=== PATIENT | female | born 1955 | race Caucasian/White ===

== ENCOUNTER 2024-08-15 12:42 | Outpatient (CLI) | payer MEDICARE, SELFPAY ==
--- NOTE | ~2024-08-15 | MR_ITS ---
EXAMINATION: MR shoulder LT wo con DATE: 08/15/2024 13:29 INDICATION: Left shoulder bicipital tendinitis. TECHNIQUE: Magnetic resonance imaging (MRI) of the left shoulder was performed without intravenous co ntrast. Sequences included axial PD-weighted FS FSE, coronal oblique PD-weighted FS FSE, coronal obli que T2-weighted FS FSE, sagittal PD-weighted FS FSE, and sagittal T1-weighted SE. COMPARISON: None. FINDINGS: Coracoacromial arch: The acromion undersurface is curved in morphology (type II) with moderate-sized anterior subacromial spur at the acromial insertion of the normal coracoacromial ligament. Severe acromioclavicular osteoa rthritis with moderate-sized inferiorly directed osteophytes. Rotator cuff: Moderate supraspinatus and infraspinatus tendinopathy. There is a small full-thickness tear involving the anterior supraspinatus tendon which begins approximately 1-1.5 cm from the superior facet footpl ate. The tear defect measures 1.7 cm medial to lateral. The tear measures 1 cm AP from the posterior margin of the biceps luz elena sling at the rotator cuff interval to the anterior margin of the remainin g intact supraspinatus tendon. Patellar ridge extending additional 1 cm more posteriorly as a partial -thickness articular sided tear of the more posterior supraspinatus tendon involving from one third t o one half of the tendon thickness. No tear of the infraspinatus tendon. The teres minor tendon is no rmal. Mild subscapular tendinopathy without discrete tear. Asymmetric mild to moderate fatty atrophy of the supraspinatus muscle belly. Biceps tendon, glenoid labrum and glenohumeral cartilage: Mild to moderate tendinopathy of the intra and extra articular portions of the long head biceps tendo n without discrete tear. There is a tear with increased signal at the base of and within the substanc e of the posterior superior glenoid labrum beginning at the 12:00 position and extending posteriorly to the 10:00 position. There is further more caudal extension of the tear or peripherally along the f ree edge of the 10:00-o'clock position of the posterior labrum. There is thickening of the anteroinfe rior labrum with more diffuse amorphous increased labral signal consistent with less well-defined deg enerative tearing. There is partial thickness chondral ulceration along the apex of the humeral head with smooth chondral surface and with some chondral surface regularity along the inferomedial aspect of the humeral head are also moderate size marginal osteophytes. Glenoid cartilage appears relatively preserved. Fluid: There is a moderate-sized glenohumeral joint effusion which extends through the full-thickness rotato r cuff tear to communicate with small to moderate amount of fluid in the subacromial/subdeltoid bursa and can indicate with a small amount of fluid extending into the acromioclavicular joint. There is a lso extension of fluid into the deep subscapular recess. Moderate synovitis at the axillary recess of the joint space. No loose osteochondral bodies. Bones: Normal marrow signal. No fracture or pathologic marrow replacing process. IMPRESSION: 1. Moderate supraspinatus and infraspinatus tendinopathy with small full-thickness tear involving the critical zone of the anterior supraspinatus tendon continuing into the more posterior tendon as a pa rtial-thickness articular sided tear. 2. Mild glenohumeral osteoarthritis with degenerative tearing of the anteroinferior glenoid labrum an d more well-defined tear of the posterior superior to posterior labrum. 3. Severe acromioclavicular osteoarthritis. 4. Mild to moderate tendinopathy without tear of the long head biceps tendon. 5. Moderate-sized left knee joint effusion. Reviewed, dictated and finalized at location B. ICE LIAISON REPRESENTATIVE IMPRESSION: 1. Moderate supraspinatus and infraspinatus tendinopathy with small full-thickn ess tear involving the critical zone of the anterior supraspinatus tendon herrera nuing into the more posterior tendon as a partial-thickness articular sided tea r. 2. Mild glenohumeral osteoarthritis with degenerative tearing of the anteroinfe rior glenoid labrum and more well-defined tear of the posterior superior to pos terior labrum. 3. Severe acromioclavicular osteoarthritis. 4. Mild to moderate tendinopathy without tear of the long head biceps tendon. 5. Moderate-sized left knee joint effusion.
--- OUTSIDE RECORDS SUMMARY | 2024-08-15 13:57 | XMS_ITS | Referral Summary ---
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 with mixed inflammation compatible with reflux related changes. - Negative for intestinal metaplasia and dysplasia. Oniel Vargas M.D. Report Electronically Reviewed and Signed Out By Oniel Vargas M.D. 06/22/2024 09:23:51 Specimen(s) Received: A: Gastric Biopsy B: Gastric erosion biopsy C: GE Junction Biopsy Microscopic Description: A. Sections show antral and oxyntic-type gastric mucosa showing mild chronic inactive gastritis with overlying regenerative change. No significant acute inflammatory infiltrate is seen. There is no evidence of intestinal metaplasia or dysplasia. In order to classify the gastritis further, a Helicobacter immunohistochemical stain was performed with adequate controls and is negative. B. Sections show oxyntic type gastric mucosa showing a mild chronic active gastritis with erosion. There is no evidence of intestinal metaplasia or dysplasia. Additionally, a small panel of immunohistochemical stains was performed with adequate controls. A Helicobacter immunohistochemical stain is negative. A pancytokeratin AE1/AE3 shows no evidence of an infiltrating carcinoma. C. Sections show squamocolumnar epithelium with mixed inflammation compatible with reflux related changes. There is no definitive evidence of intestinal metaplasia or dysplasia. Additionally, a small panel of special and immunohistochemical stains was performed with adequate controls. A pancytokeratin AE1/AE3 shows no evidence of an infiltrating carcinoma. An Alcian blue/PAS shows no evidence of intestinal metaplasia. Clinical History: Hiatal hernia. Esophagitis. GERD. EGD. Gross Description: The specimen is submitted in three formalin containers labeled MICHAEL QUINN . A. The first container is labeled gastric biopsy . It is 4 fragments of price tissue between 1 and 2 mm. All in A. B. The second container is labeled gastric erosion . It is one price tissue fragment measuring 2 mm. All in B. C. The third container is labeled GE junction . It is 2 fragments of price tissue measuring 2 mm. All in C. T.A. Jameel Ramirez., P.A./Janeth Angel M.D. REPORT IMAGES AND SCANNED DOCUMENTS, IF INCLUDED, ONLY VIEWABLE IN PDF VERSION OF REPORT The performance characteristics of some immunohistochemical stains, fluorescence in-situ hybridization tests and immunophenotyping by flow cytometry cited in this report (if any) were determined by the Surgical Pathology Department at [facility] as part of an ongoing quality control chemist program and in compliance with federally mandated regulations drawn from the Clinical Laboratory Improvement Act of 1988 (CLIA '88). Some of these tests rely on the use of analyte specific reagents and are subject to specific labeling requirements by the US Food and Drug Administration. Such diagnostic tests may only be performed in a facility that is certified by the Department of Health and Human Services as a high complexity laboratory under CLIA '88. The FDA has determined that such clearance or approval is not necessary. This test is used for clinical purposes. It should not be regarded as investigational or for research. Nevertheless, federal rules concerning the medical use of analyte specific reagents require that the following disclaimer be attached to the report: This test was developed and its performance characteristics determined by the Surgical Pathology Department [facility]. It has not been cleared or approved by the U. S. Food and Drug Administration. Note for decalcified specimens: This assay has not been validated on decalcified tissues. Results should be interpreted with caution given the possibility of false negativity on decalcified specimens us Brandy Obrien MD LAB PATHOLOGY ORDERABLES Final R esult PATHOLOGY [facility] [address] [place] [id number] * EGD (06/20/2024 7:45 AM SHUCKER) Anatomical Region Laterality Modality Other Narrative Procedure Note Brandy Obrien MD - 06/20/2024 7:45 AM CST [facility] Patient Name: Michael Quinn Procedure Date: 06/20/2024 7:45 AM Date of : 1955 Admit Type: Outpatient Age: 69 Gender: Female Attending MD: Brandy Obrien M.D. Room: [facility] ENDOSCOPY ROOM 2 Note Status: Finalized Patient Profile: This is a 69 year old female hx of HLD, obesity,GERD here for evaluation of hiatal hernia, GERD and esophagitis. EGD from 2019 showed 4 cm hiatalhernia and Grade B esophagitis. Currently taking Nexium 20mg daily with adequate control, however does have bad breakthrough reflux if skips a dose Procedure: Upper GI endoscopy Indications: Follow-up of esophagitis, GERD, hiatal hernia Referring MD: Vasu Pickens M.D. Providers: Brandy Obrien M.D. Impression: - Large 8 cm hiatal hernia. - LA Grade A reflux esophagitis with no bleeding. Biopsied. - Erosive gastropathy with no bleeding and nostigmata of recent bleeding. Biopsied. - Erythematous mucosa in the gastric fundus,gastric body and antrum. Biopsied. - Normal examined duodenum. Recommendation: - Patient has a contact number available for emergencies. The signs and symptoms of potential delayed complications were discussed with thepatient. Return to normal activities tomorrow. Written discharge instructions were provided to thepatient. - Discharge patient to home (with escort). - Resume previous diet. - No ibuprofen, naproxen, or other non-steroidal anti-inflammatory drugs. - Continue present medications. - Await pathology results. - Return to GI clinic as previously scheduled. Medicines: Monitored Anesthesia Care Complications: No immediate complications. Estimated Blood Loss: Estimated blood loss was minimal. Procedure: Pre-Anesthesia Assessment: - Prior to the procedure, a History and Physicalwas performed, and patient medications and allergieswere reviewed. The patient is competent. The risks and benefits of the procedure and the sedation optionsand risks were discussed with the patient. Allquestions were answered and informed consent was obtained. Patient identification and proposed procedure were verified by the physician, the j2ee programmer and the testing and regulating technician in the endoscopy suite. Mental Status Examination: normal. Prophylactic Antibiotics: The patient does not require prophylactic antibiotics. Prior Anticoagulants: The patient has taken no anticoagulant or antiplatelet agents. Afterreviewing the risks and benefits, the patient was deemed in satisfactory condition to undergo the procedure.The anesthesia plan was to use monitored anesthesiacare (MAC). Immediately prior to administration of medications, the patient was re-assessed foradequacy to receive sedatives. The heart rate, respiratory rate, oxygen saturations, blood pressure, adequacyof pulmonary ventilation, and response to care were monitored throughout the procedure. The physical status of the patient was re-assessed after the procedure. The benefits, risks, and alternatives to theprocedure and sedation were discussed and informed consentwas obtained. The scope was passed under direct vision. The Endoscope [id number] was introduced through the mouth, and advanced to the second partof duodenum. The upper GI endoscopy was accomplished without difficulty. The patient tolerated the procedure well. Findings: An 8 cm hiatal hernia was present. LA Grade A (one or more mucosal breaks less than 5 mm, not extending between tops of 2 mucosal folds) esophagitis with a localized area of nodularity was found at the gastroesophageal junction. Biopsies were taken with a cold forceps for histology. A single localized linear erosion with no bleeding and no stigmata of recent bleeding was found in the hernia sac. Biopsies were taken witha cold forceps for histology. Mildly erythematous mucosa without bleeding was found in the gastric fundus, in the gastric body and in the gastric antrum. Biopsies were taken with a cold forceps for Helicobacter pylori testing. The examined duodenum was normal. Brandy Obrien M.D. 06/20/2024 9:42:30 AM Number of Addenda: 0 Note Initiated On: 06/20/2024 7:45 AM Procedure Code(s): --- Professional --- 98896, Esophagogastroduodenoscopy, flexible, transoral; with biopsy, single or multiple --- Technical --- 37161, Esophagogastroduodenoscopy, flexible, transoral; with biopsy, single or multiple Diagnosis Code(s): --- Professional --- K44.9, Diaphragmatic hernia without obstruction or gangrene K21.00, Gastro-esophageal reflux disease with esophagitis, without bleeding K31.89, Other diseases of stomach and duodenum --- Technical --- K44.9, Diaphragmatic hernia without obstruction or gangrene K21.00, Gastro-esophageal reflux disease with esophagitis, without bleeding K31.89, Other diseases of stomach and duodenum CPT copyright 2020 [employer]. All rights reserved. The codes documented in this report are preliminary and upon airport manager reviewmay be revised to meet current compliance requirements. Recognized by the [employer] for promoting quality in endoscopy us Brandy Obrien MD ENDOSCOPY PROCEDURES Final Resul t * Colonoscopy (04/05/2024 7:03 AM CDT) Anatomical Region Laterality Modality Other Narrative Procedure Note Kanu Schwarz, - 04/05/2024 7:03 AM CDT [facility] Patient Name: Michael Quinn Procedure Date: 04/05/2024 7:03 AM Date of : 1955 Admit Type: Outpatient Age: 69 Gender: Female Attending MD: Kanu Schwarz D.O. Room: [facility] END[facility]COPY ROOM 2 Note Status: Finalized Patient Profile: Refer to note in patient chart for documentation of history and physical. Procedure: Colonoscopy Indications: High risk colon cancer surveillance: Personalhistory of colonic polyps, Family history of colon cancerin multiple first-degree relatives, Last colonoscopy: June 2017 Referring MD: Vasu Pickens M.D. Providers: Kanu Schwarz D.O. Impression: - One 5 mm polyp in the distal sigmoid colon,removed with a hot snare. Resected and retrieved. - One 2 mm polyp in the sigmoid colon, removed witha jumbo cold forceps. Resected and retrieved. - Diverticulosis in the sigmoid colon, in the descending colon, in the transverse colon and inthe ascending colon. - The examined portion of the ileum was normal. Recommendation: - Discharge patient to home. - Resume previous diet. - Continue present medications. - Await pathology results. - Repeat colonoscopy in 3 years for surveillance. - Return to primary care physician PRN. - Patient has a contact number available for emergencies. The signs and symptoms of potential delayed complications were discussed with thepatient. Return to normal activities tomorrow. Written discharge instructions were provided to thepatient. -Call 2 weeks for biopsy report. -Metamucil or Benefiber daily. Medicines: Monitored Anesthesia Care Complications: No immediate complications. Estimated Blood Loss: Estimated blood loss was minimal. Procedure: Pre-Anesthesia Assessment: - As per anesthesia. The benefits, risks and alternatives of theprocedure and sedation were discussed and informed consentwas obtained. All questions were answered. Please referto the signed informed consent document in the medical record. The bowel preparation used was Miralax via split dose instruction. The bowel preparation usedwas bisacodyl tablets via split dose instruction. The scope was passed under direct vision. TheColonoscope [id number] was introduced through the anus and advanced to the 5 cm into the ileum. Theterminal ileum, the appendiceal orifice and the rectum were photographed. The colonoscopy was performed without difficulty. The patient tolerated the procedurewell. The quality of the bowel preparation was good. Findings: The perianal and digital rectal examinations were normal. A 5 mm polyp was found in the distal sigmoid colon. The polyp was pedunculated. The polyp was removed with a hot snare. Resection and retrieval were complete. A 2 mm polyp was found in the sigmoid colon. The polyp was flat. The polyp was removed with a jumbo cold forceps. Resection and retrieval were complete. A few diverticula were found in the sigmoid colon, descending colon, transverse colon and ascending colon. The terminal ileum appeared normal. Electronically signed by Kanu Schwarz M.D. Kanu Schwarz D.O. 04/05/2024 9:13:20 AM Number of Addenda: 0 Note Initiated On: 04/05/2024 7:03 AM Procedure Code(s): --- Professional --- 70403, Colonoscopy, flexible; with removal of tumor(s), polyp(s), or other lesion(s) by snare technique 30890, 59, Colonoscopy, flexible; with biopsy, single or multiple --- Technical --- 11801, Colonoscopy, flexible; with removal of tumor(s), polyp(s), or other lesion(s) by snare technique 84401, 59, Colonoscopy, flexible; with biopsy, single or multiple Diagnosis Code(s): --- Professional --- Z86.010, Personal history of colonic polyps D12.5, Benign neoplasm of sigmoid colon Z80.0, Family history of malignant neoplasm of digestive organs K57.30, Diverticulosis of large intestine without perforation orabscess without bleeding --- Technical --- Z86.010, Personal history of colonic polyps D12.5, Benign neoplasm of sigmoid colon Z80.0, Family history of malignant neoplasm of digestive organs K57.30, Diverticulosis of large intestine without perforation orabscess without bleeding CPT copyright 2020 [employer]. All rights reserved. The codes documented in this report are preliminary and upon airport manager reviewmay be revised to meet current compliance requirements. Recognized by the [employer] for promoting quality in endoscopy us Kanu Schwarz DO ENDOSCOPY PROCEDURES Final Res ult * Screening Mammogram Bilateral W Jason (08/24/2023 1:07 PM CDT) Anatomical Region Laterality Modality Breast Bilateral Mammography 08/24/2023 1:20 PM CDT Impressions 08/24/2023 1:20 PM CDT There is no mammographic evidence of malignancy. A 1 year screening mammogram is recommended. BI-RADS: 1 - Negative. The patient has been or will be contacted. The patient will be entered into a reminder system with a target due date of 1 year for her next mammogram. Electronically signed by: Radha Brenner M.D. Narrative 08/24/2023 1:20 PM CDT EXAMINATION: SCREENING MAMMOGRAM BILATERAL W JASON ORDERING HEALTHCARE PROVIDER: SELF SCREENING MAMMOGRAM HISTORY: Routine screening mammography. COMPARISON: 10/22/2020, 03/21/2017, 05/21/2015 TECHNIQUE: CC and MLO views of the bilateral breasts were obtained with digital technique using breast tomosynthesis with C view. Computer aided detection was utilized. FINDINGS: DENSITY: There are scattered fibroglandular elements in the bilateral breasts. BREASTS: There are no suspicious masses, suspicious calcifications, or other suspicious findings in either breast. There has been no suspicious interval change. us Self Screening Mammogram IMG MAMMO PROCEDURES Fi nal Result * HEPATITIS C AB W/REFL TO HCV RNA, QN, PCR (REFL) (03/09/2017 9:25 AM CDT) Hep C Ab NON-REACTI VE NON-REACTI VE [facility] SIGNAL TO CUT-OFF 0.02 <1.00 [facility] Blood specimen (specimen) 03/09/2017 9:25 AM CDT 03/10/2017 4:19 AM CDT Narrative Resulting Agency Comment Performing Organization Information: Site ID: [place] Name: [facility] Address: [id number] [place] [id number] Director: Oesi Fleming D.O., MPH Vasu Pickens MD LAB BLOOD ORDERABLES Fin al Result JATIN [facility] [place], [place] * HM DEXA SCAN (06/23/2015) HM DEXA Scan Normal Historical Provider HEALTH MAINTENANCE Final Result from Last 3 Months or Most Recently Relevant to Health Maintenance Insurance AETNA MEDICARE [facility] AETNA MEDICARE AETNA MEDICARE Advance Directives For more information, please contact: [phone] * Full Code (Latest Code Status on File) Date Activated Date Inactivated Comments 06/20/2024 7:30 AM 06/20/2024 3:01 PM * Full Code Date Activated Date Inactivated Comments 06/20/2024 7:30 AM 06/20/2024 7:30 AM * Full Code Date Activated Date Inactivated Comments 04/05/2024 7:28 AM 04/05/2024 2:00 PM * Full Code Date Activated Date Inactivated Comments 04/05/2024 7:28 AM 04/05/2024 7:28 AM * Full Code Date Activated Date Inactivated Comments 09/08/2022 7:12 PM 09/10/2022 7:58 PM Care Teams Stereoptic Projection Topographer Relationship Specialty Start Date End Date Vasu Pickens MD [address] [place] [address] PCP - General 09/10/16
--- OUTSIDE RECORDS SUMMARY | 2024-08-15 13:57 | XMS_ITS | Clinical Summary ---
Author Organization [facility] Address [address], [address] [address] Phone Care Team Providers Care Migratory Farm Hand Name Role Phone Unavailable Primary Care Provider Unavailabl e Allergies Active Allergy Reactions Criticality Noted Date Comments Amoxicillin Diarrhea Low 12/13/2018 Reaction: diarrhea, Atorvastatin Other (see Comments) 12/13/2018 Reaction: Myalgias, Celecoxib Other (see Comments) 12/13/2018 Codeine Other (see Comments) 12/13/2018 Medications diclofenac (VOLTAREN) 75 MG Tablet Delayed Response 9 Active TRUEPLUS INSULIN SYRINGE 31G X 10/26 0.5 ML Misc 9 Active Levocetirizine Dihydrochloride 5 MG Tablet ONEDAILY 7 Active levothyroxine (SYNTHROID) 100 MCG Tablet 200 mcg. 9 Active LORazepam (ATIVAN) 1 MG Tablet 1 mg. 9 Active montelukast (SINGULAIR) 10 MG Tablet 9 Active raNITIdine (ZANTAC) 300 MG Tablet 300 mg. 5 Active sertraline (ZOLOFT) 100 MG Tablet 9 Active Social History Tobacco Use Types Packs/Day Years Used Date Smoking Tobacco: Former Cigarettes 1 20 Smokeless Tobacco: Never Alcohol Use Standard Drinks/Week Comments Never 0 (1 standard drink = 0.6 oz pur e alcohol) AUDIT-C Answer Date Recorded Frequency of Alcohol Consumption Never 12/13/2018 Average Number of Drinks Not on file 019 Frequency of Binge Drinking Not on file 08/2018 Comments Unknown Sex and Gender Information Value Date Recorded Sex Assigned at Not on file Legal Sex Female 11:38 PM CDT Gender Identity Not on file Sexual Orientation Not on file Last Filed Vital Signs Vital Sign Reading Time Taken Comments Blood Pressure 128/86 12/13/2018 1:01 PM CDT Pulse 86 12/13/2018 1:01 PM CDT Temperature 36.6 C (97.9 F) 12/13/2018 1:01 PM CDT Respiratory Rate 18 12/13/2018 1:01 PM CDT Oxygen Saturation 98% 12/13/2018 1:01 PM CDT Inhaled Oxygen Concentration - - Weight 116.1 kg (256 lb) 12/13/2018 1:01 PM CDT Height 175.3 cm (5' 9 ) 12/13/2018 1:01 PM CDT Body Mass Index 37.8 12/13/2018 1:01 PM CDT Plan of Treatment Health Maintenance Due Date Last Done Comments DEXA Bone Density 1955 Hepatitis C Virus (HCV) Screening 1955 TdaP Immunization 1955 Colonoscopy 1999 Colorectal Cancer Screening 1999 Cologuard 01/12/2004 Immunochemical Fecal Occult Blood 01/12/2004 Mammogram 01/12/2004 Pneumococcal Immunization (50+ years) (1 of 1 - PCV) 01/12/2004 Zoster Immunization (1 of 2) 01/12/2004 Influenza Immunization (#1) 2024 03/29/2016, 1 07/12/2014 SARS-COV-2 Immunization ( season) 2024 11/02/2021, 03/09/2021, 08/14/2020, Additional history exists Respiratory Syncytial Virus (RSV) Immunization (Adult) (1 - 1-dose 75+ series) 2029 Hepatitis B Immunization Aged Out No longer eligible based on patient's age to complete this topic Meningococcal Immunization (ACWY) Aged Out No longer eligible based on patient's age to complete this topic Rotavirus Immunization Aged Out No lo nger eligible based on patient's age to complete this topic
--- OUTSIDE RECORDS SUMMARY | 2024-08-15 13:57 | XMS_ITS | Encounter Summary ---
Author Organization [facility] Address [address] [place] [address] Care Team Providers Care Receiving Room Clerk Name Role Phone Vasu Pickens MD Primary Care Provider + Encounter Details Date Type Department Care Team (Late st Contact Info) Description 08/07/2024 Results Follow-Up [facility] Gastroenterology at [address] [place] [address] Brandy Obrien MD [address] [place] [address] [address] [place] [address] Social History Tobacco Use Types Packs/Day Years Used Date Smoking Tobacco: Former Smokeless Tobacco: Never Alcohol Use Standard Drinks/Week Comments Yes 0 [...] 09/09/2022 How often do you attend chur ch or roman catholic services? More than 4 times per year 09/09/2022 Do you belong to any clubs o r organizations such as roman catholic groups, unions, fraternal or athletic groups, or [...] Master's degree (e.g., MA, MS, Santos, MEd, CITY DETECTIVE, TIMA) 09/09/2022 Comments No Sex and Gender Information Value Date Recorded Sex Assigned at Not on file Legal Sex Female 5:12 PM COPY CENTER ASSOCIATE Gender Identity Not on file Sexual Orientation Not on file documented as of this encounter Plan of Treatment Not on file documented as of this encounter Visit Diagnoses Not on filedocumented in this encounter Care Teams Receiving Room Clerk Relationship Specialty Start Date End Date Vasu Pickens MD [address] [place], [place] [address] PCP - General 09/10/16 documented as of this encounter
--- OUTSIDE RECORDS SUMMARY | 2024-08-15 13:57 | XMS_ITS | CONTINUITY OF CARE DOCUMENT ---
Author Name francois parrish Address Unknown Organization [facility] Office Address [address] [place] [address] Phone [phone] Care Team Providers Care Bus And Rail Operator Name Role Phone Jax WINTERS, Bernardo Unavailable CARMEN BARRAGAN MD Unavailable PROBLEMS Condition Status Date Provider Notes Cardiovascular screening active Yolis Leung INSURANCE PROVIDERS Payer name Policy type / Coverage type [place] red constitution party ID AETNA [facility] H[facility] Commercial [facility] [id number] TREATMENT PLAN Date Name CT, Coronary Calcium Score HISTORY OF PROCEDURES Procedure Date Procedure Name Provider Procedure Notes S tatus CT- Coronary CA score Bernardo Camara MD completed
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
== END 2024-08-15 12:43 | disposition home or self-care (01) ==
PROVIDERS: PCP Internal Medicine; Visit Provider Orthopaedic Surgery
DX: M75.22 Bicipital tendinitis, left shoulder (principal); M67.814 Other specified disorders of tendon, left shoulder; M19.012 Primary osteoarthritis, left shoulder; S46.012A Strain of muscle(s) and tendon(s) of the rotator cuff of left shoulder, initial encounter; X58.XXXA Exposure to other specified factors, initial encounter; M25.462 Effusion, left knee
CPT/HCPCS: 73221

== ENCOUNTER 2025-03-18 13:55 | Outpatient (CLI) | payer MEDICARE, SELFPAY ==
[2025-03-18 14:46] LABS: Hematocrit 37.1 % (37.0-47.0); Hemoglobin 12.0 g/dL (12.0-15.0)
--- OUTSIDE RECORDS SUMMARY | 2025-03-18 14:47 | XMS_ITS | Clinical Summary ---
Author Organization [facility] Building A Address [address] [place] [address] Care Team Providers Care Promotion Specialist Name Role Phone Vasu Pickens MD Primary [...] TAKE TWO TABLETS ONCE DAILY. 180 3 8 Active albuterol HFA (PROVENTIL HFA,VENTOLIN HFA) 90 mcg/actuation inhaler INHALE ONE OR TWO PUFFS INTO LUNGS EVERY FOUR TO SIX HOURS NEEDED 9 3 8 Active montelukast (SINGULAIR) 10 mg tablet TAKE ONE TABLET DAILY 90 3 8 Active levocetirizine (XYZAL) 5 mg tablet ONEDAILY 90 tablet [address] (NexIUM) 20 mg capsule 1 Active LORazepam (ATIVAN) 1 mg tablet 1 tablet (1 mg total) as needed 2 Active acetaminophen (TYLENOL) 325 mg tabletIndicatio ns:Arthritic Pain,Fever,Pain Take 2 tablets (650 mg total) by mouth every 6 (six) hours as needed for pain or headaches Active ezetimibe (ZETIA) 10 mg tablet 3 Active levothyroxine (SYNTHROID) 175 mcg tablet 4 Active acidophilus-pec tin, citrus 100 million cell-10 mg capsule Take by mouth Activ e diclofenac DR (VOLTAREN) 75 mg EC tablet 5 Active diclofenac sodium (VOLTAREN) 1 % gel Apply 2 g topically 3 (three) times a day 50 g 1 5 Active hydroxychloroqu ine (PLAQUENIL) 200 mg tablet Take 2 tablets (400 mg total) by mouth daily 180 tablet 1 5 07/23/19 26 Active sulfaSALAzine (AZULFIDINE) 500 mg tablet Take 2 tablets (1,000 mg total) by mouth 2 (two) times a day 360 tablet 1 5 07/23/19 26 Active Active Problems Problem Noted Date Diagnosed Date [...] (05/07/2020): Added automatically from request for surgery [id number] Closed nondisplaced fracture of second metatarsal bone [...] 07/07/2023 Overview (09/16/2016): DVRTCLO COLON W/O [facility]MR[facility] Encounters Date Type Department Care Team Description 02/27/2025 9:47 AM CDT - 02/27/2025 11:59 PM CDT Hospital Encounter [facility] Imaging Center [address] [place] [address] Neoplasm of uncertain behavior of skin Discharge Disposition: Discharge to home or self care 02/25/2025 Telephone [facility] Center [address] [place] [address] Martha Mancilla RN 01/25/2025 Results Follow-Up [facility] Medicine Rheumatology [address] [facility] Medical Office Building [address] [place] [address] Savita Ann, ANA PAULA CBC with auto differential, Comprehensive metabolic panel, CRP (acute phase), Additional followed-up results: 3 01/24/2025 2:45 PM CDT Lab [facility] at [facility] [address] [facility] [place] [address] Subluxation 01/24/2025 2:00 PM CDT Office Visit [facility] Medicine Rheumatology [address] [facility] Medical Office Building [address] [place] [address] Savita Ann, ANA PAULA Rheumatoid arthritis of multiple sites with negative rheumatoid factor (HCC) (Primary Dx); High risk medication use from Last 3 Months Immunizations Immunization Administration [...] Medical 04/13/2012 achilles heal s urgery; Comments: PEPE Sandoval Hx Other Medical foot surgery Hx Other [...] oz pur e alcohol) Social Connection and Isolation Panel Answer Date Recorded In a typical week, how many times do you talk on the phone with family, friends, or neighbors? More than three times a week 09/09/2022 How often do you get togethe r with friends or relatives? More than three times a week 09/09/2022 How often do you attend chur ch or adventism services? More than 4 times per year 09/09/2022 Do you belong to any clubs o r organizations such as episcopal groups, unions, fraternal or athletic groups, or school groups? No 09/09/2022 How often do you attend meet ings of the clubs or organizations you belong to? Never 09/09/2022 Are you , , di vorced, , never , or living with a partner? Never 09/09/2022 Overall Financial Resource Strain (CARDIA) Answe r [...] things needed for daily living? No 09/09/2022 AUDIT-C Answer Date Recorded Frequency of Alcohol Consumption Not on file 01/24/2025 Q2: How many drinks containi ng alcohol do you have on a typical day when you are drinking? Patient does not drink Frequency of Binge Drinking Not on file 01/11 Personal Safety Answer Date Recorded Have you ever been in or are you currently in a harmful physical or emotional relationship or is someone making you feel afraid or unsafe? Denies 06/20/2024 Education Answer Date Recorded What is the highest level of school you have completed or the highest degree you have received? Master's degree (e.g., MA, MS, Santos, MEd, [employer]ERG[employer] ASSISTANT, TIMA) 09/09/2022 Comments No Sex and Gender Information Value Date Recorded Sex Assigned at Not on file Legal Sex Female 5:12 PM [employer] Gender Identity Not on file Sexual Orientation Not on file Obstetrics History Para Term AB IAB SAB Ectopic Multiple Livin g Live Births 0 Last Filed Vital Signs Vital Sign Reading Time Taken Comments Blood Pressure 110/77 01/24/2025 2:02 PM CDT Pulse 80 01/24/2025 2:02 PM CDT Temperature 36.6 C (97.9 F) 01/24/2025 2:02 PM CDT Respiratory Rate 18 09/06/2024 3:56 PM CDT Oxygen Saturation 97% 01/24/2025 2:02 PM CDT Inhaled Oxygen Concentration - - Weight 111 kg (244 lb 12.8 oz) 01/24/2025 2:02 P M CDT Height 175.3 cm (5' 9) 01/24/2025 2:02 PM CDT Body Mass Index 36.15 01/24/2025 2:02 PM CDT Plan of Treatment Health Maintenance Due Date Last Done Comments Hepatitis B Screening 01/12/1973 Osteoporosis Screening-Bone Density Scan 06/23/2017 06/23/2015 Depression Screening 03/23/2018 03/23/2017, 03/18/2017, 01/26/2017 Well Visit 65+ 2019 03/23/2017 Pneumococcal vaccine 65+ (2 of 2 - PPSV23, PCV20, or PCV21) 07/19/2019 05/24/2019, 07/26/2012 DTaP/Tdap/Td Vaccine (2 - Td or Tdap) 01/15/2021 01/15/2011 Covid-19 Vaccine ( - 2024-2 6 season) 2025 04/30/2022, 11/02/2021, 03/09/2021, Additional history exists Influenza Vaccine (#1) 2025 , 03/04/2021, 04/08/2020, Additional history exists Fall Risk Assessment 06/20/2025 06/20/2024 Breast Cancer Screening-Mammogram 08/20/2025 08/20/2024, 08/24/2023, 10/22/2020, Additional history exists Colon Cancer Screening-Colonoscopy 04/05/2029 04/05/2024, 07/08/2017, 12/09/2011, [...] history exists Medical Devices Implanted Type Area Decorator Lighting Fixtures Device Identifier Shelf Expiration Date Model / Serial / Lot Conrad Tka Knee Procedures Procedure Name Priority Date/Time Associated Diagnosis Comments US VEIN DUPLEX LOWER EXTREMITY RIGHT LIMITED Schedule Routine, Read Routine (OP Routine) 02/27/2025 11:35 AM CDT Neoplasm of uncertain behavior of skin EGFR Routine 01/24/2025 2:49 PM CDT Subluxation DIFFERENTIAL AUTO Routine 01/24/2025 2:4 9 PM CDT Subluxation ERYTHROCYTE SEDIMENTATION RATE Routine 01/24/2025 2:49 PM CDT Subluxation CRP (ACUTE PHASE) Routine 01/24/2025 2:4 9 PM CDT Subluxation COMPREHENSIVE METABOLIC PANEL Routine 01/24/2025 2:49 PM CDT Subluxation CBC WITH AUTO DIFFERENTIAL Routine 01/24/2025 2:49 PM CDT Subluxation SCREENING MAMMOGRAM BILATERAL W JASON Schedule Routine, Read Routine (OP Routine) 08/20/2024 3:03 PM CDT Encounter for screening mammogram for malignant neoplasm of breast COLONOSCOPY 04/05/2024 7:03 AM CDT HEPATITIS C AB W/REFL TO HCV RNA, QN, PCR (REFL) Routine 03/09/2017 9:25 AM CDT Need for hepatitis C screening test HM DEXA SCAN Routine 06/23/2015 from Last 3 Months or Most Recently Relevant to Health Maintenance Results * US Vein Duplex Lower Extremity Right Limited, Unilateral (02/27/2025 11:35 AM CDT) Anatomical Region Laterality Modality Vascular Right Ultrasound 03/01/2025 3:46 PM CDT Narrative 03/01/2025 3:47 PM CDT EXAM DESCRIPTION: US VEIN DUPLEX LOWER EXTREMITY RIGHT LIMITED, UNILATERAL REASON FOR STUDY: Right leg pain today. Concern for deep vein thrombosis. TECHNIQUE: Duplex scan using the B-mode, spectral Doppler, and color-flow Doppler of the deep venous system of the right lower extremity was performed. Images stored on PACS. COMPARISON: None FINDINGS: The common femoral, common femoral-saphenous vein confluence, visualized profunda femoral, superficial femoral, and popliteal veins are readily compressible with no intraluminal thrombus on israel scale images. There is normal color and spectral Doppler signal, including augmentation. Greater saphenous vein appears patent. Visualized calf veins are patent. IMPRESSION: No right lower extremity deep venous thrombosis. THIS IS AN ELECTRONICALLY VERIFIED FINAL REPORT 03/01/2025 3:47 PM - Electronically signed by Bar Roldan M.D. KT: CLAUDIA Report ID: [id number] Reading Location: [id number] Procedure Note Bar Roldan MD - 03/01/2025 EXAM DESCRIPTION: US VEIN DUPLEX LOWER EXTREMITY RIGHT LIMITED,UNILATERAL REASON FOR STUDY: Right leg pain today. Concern for deep veinthrombosis. TECHNIQUE: Duplex scan using the B-mode, spectral Doppler, and color-flow Doppler of the deep venous system of the right lower extremity was performed. Images stored on PACS. COMPARISON: None FINDINGS: The common femoral, common femoral-saphenous vein confluence, visualized profunda femoral, superficial femoral, and popliteal veins are readily compressible with no intraluminal thrombus on israel scale images. There is normal color and spectral Doppler signal, including augmentation. Greater saphenous vein appears patent. Visualized calf veins are patent. IMPRESSION: No right lower extremity deep venous thrombosis. THIS IS AN ELECTRONICALLY VERIFIED FINAL REPORT 03/01/2025 3:47 PM - Electronically signed by Bar Roldan M.D. KT: KT Report ID: [id number] Reading Location: [id number] us Oniel Chadwick FINISH MOLDER IMG US PROCEDURES Fin al Result * eGFR (01/24/2025 2:49 PM CDT) eGFR 79 >=60 mL/min/1. 73 m2 Comment: Interpretive Data [...] Current interpretive data was last reviewed 2021. Testing performed by: [facility], [address] [place] [address] Blood 01/24/2025 2:49 PM CDT 01/24/2025 2:57 PM CDT Savita Ann FINISH MOLDER LAB BLOOD ORDERABLES Fi nal Result [facility] [address] Department [place] [address] * Differential, auto (01/24/2025 2:49 PM CDT) Neutrophil abs 4.54 1.50 - 6.50 K/cumm Comment:Testing performed by : [facility], [facility], [address] [place] [address] Imm gran abs 0.02 0.00 - 0.10 K/cumm [facility] Comment:Testing performed by : [facility] 2, [address] [place] [address] Lymphocyte abs 1.54 0.80 - 3.30 K/cumm [facility] Comment:Testing performed by : [facility] 2, [address] [place] [address] Monocyte abs 0.44 0.20 - 0.80 K/cumm [facility] Comment:Testing performed by : [facility] 2, [address] [place] [address] Eosinophil abs 0.17 0.00 - 0.50 K/cumm [facility] Comment:Testing performed by : [facility] 2, [address] [place] [address] Basophil abs 0.08 0.00 - 0.10 K/cumm [facility] Comment:Testing performed by : [facility] 2, [address] [place] [address] Neutrophil pct 66.8 % [facility] Comment: Interpretive Data Percent cell count reference ranges are not reported, since discordance with absolute values may lead to misinterpretation of CBC data. Current Interpretive Data was last revised on 2017. Testing performed by: [facility], [facility], [address] [place] [address] Imm gran pct 0.3 % [facility] Comment: Interpretive Data Percent cell count reference ranges are not reported, since discordance with absolute values may lead to misinterpretation of CBC data. Current Interpretive Data was last revised on 2017. Testing performed by: [facility], [facility], [address] [place] [address] Lymphocyte pct 22.7 % [facility] Comment: Interpretive Data Percent cell count reference ranges are not reported, since discordance with absolute values may lead to misinterpretation of CBC data. Current Interpretive Data was last revised on 2017. Testing performed by: [facility], [facility], [address] [place] [address] Monocyte pct 6.5 % [facility] Comment: Interpretive Data Percent cell count reference ranges are not reported, since discordance with absolute values may lead to misinterpretation of CBC data. Current Interpretive Data was last revised on 2017. Testing performed by: [facility], [facility], [address] [place] [address] Eosinophil pct 2.5 % [facility] Comment: Interpretive Data Percent cell count reference ranges are not reported, since discordance with absolute values may lead to misinterpretation of CBC data. Current Interpretive Data was last revised on 2017. Testing performed by: [facility], [facility], [address] [place] [address] Basophil pct 1.2 % [facility] Comment: Interpretive Data Percent cell count reference ranges are not reported, since discordance with absolute values may lead to misinterpretation of CBC data. Current Interpretive Data was last revised on 2017. Testing performed by: [facility], [facility], [address] [place] [address] Blood 01/24/2025 2:49 PM CDT 01/24/2025 2:50 PM CDT Savita Ann FINISH MOLDER LAB BLOOD ORDERABLES Fi nal Result [facility] [address] [facility] Department [place] [address] * (ABNORMAL) CBC with auto differential (01/24/2025 2:49 PM CDT) Pathologist [facility] WBC 6.79 3.80 - 9.90 K/cumm Comment:Testing performed by : [place] [address], [place] [address] Hgb 11.9 11.9 - 15.5 g/dL [facility] Comment:Testing performed by : [place] [address] [place] [address] Hct 36.9 35.6 - 45.5 % [facility] Comment:Testing performed by : [place] [address], [address] [place] [address] Plt 275 150 - 400 K/cumm [facility] Comment:Testing performed by : [address] [place] [address] MPV 9.2 9.1 - 12.3 fL [facility] Comment:Testing performed by : [place] [address], [address] [place] [address] RBC 3.89(L) 3.90 - 5.20 M/cumm [facility] Comment:Testing performed by : [place] [address], [address] [place] [address] MCV 94.9 81.3 - 96.4 fL [facility] Comment:Testing performed by : [place] [address], [address] [place] [address] MCH 30.6 27.1 - 33.3 pg [facility] Comment:Testing performed by : [facility], [facility], [address] [place] [address] MCHC 32.2(L) 32.3 - 35.7 g/dL [facility] Comment:Testing performed by : [facility], [facility], [address] [place] [address] RDW CV 14.3 11.1 - 14.9 % [facility] Comment:Testing performed by : [facility], [facility], [address] [place] [address] RDW SD 49.6(H) 35.7 - 48.1 fL [facility] Comment:Testing performed by : [facility], [facility], [address] [place] [address] ANC Prelim 4.54 1.50 - 6.50 K/cumm [facility] Comment: Interpretive Data The rapid ANC is a preliminary automated count and may vary from the final ANC (Neut Abs) reported in the WBC differential that follows. Current interpretive data was last revised 2024. Testing performed by: [facility], [facility], [address] [place] [address] Blood 01/24/2025 2:49 PM CDT 01/24/2025 2:50 PM CDT Savita Ann FINISH MOLDER LAB BLOOD ORDERABLES nal Result [facility] [address] Department [place] [address] * Erythrocyte sedimentation rate (01/24/2025 2:49 PM CDT) Erythrocyte sedimentation rate 27 1 - 30 mm/hr Comment:Testing performed by : [facility], [address] [place] [address] Blood 01/24/2025 2:49 PM CDT 01/24/2025 3:23 PM CDT us Savita Ann NP LAB BLOOD ORDERABLES Fi nal Result Performing Organization Address [facility] Co de Phone Number [facility] [address] [facility] [place] [address] * CRP (acute phase) (01/24/2025 2:49 PM CDT) CRP 4.1 <=10.0 mg/L Comment:Testing performed by : [facility], [address], [place] [address] Blood 01/24/2025 2:49 PM CDT 01/24/2025 2:57 PM CDT us Savita Ann NP LAB BLOOD ORDERABLES Fi nal Result Performing Organization Address [facility] de Phone Number [facility] [address] [facility] [place] [address] * Comprehensive metabolic panel (01/24/2025 2:49 PM CDT) Pathologist [facility] Sodium 139 135 - 145 mmol/L Comment:Testing performed by : [facility], [address], [place] [address] Potassium, pl 3.9 3.3 - 4.9 mmol/L [facility] Comment:Testing performed by : [facility], [address], [place] [address] Chloride 101 97 - 110 mmol/L [facility] Comment:Testing performed by : [facility], [address], [place] [address] CO2 27 22 - 32 mmol/L [facility] Comment:Testing performed by : [facility], [address], [place] [address] Anion gap 11 2 - 15 mmol/L [facility] Comment:Testing performed by : [facility], [address], [place] [address] BUN 14 6 - 25 mg/dL [facility] Comment:Testing performed by : [facility], [address], [place] [address] Creatinine 0.80 0.60 - 1.10 mg/dL [facility] Comment:Testing performed by : [facility], [address], [place] [address] Glucose 148 70 - 199 mg/dL [facility] Comment: Interpretive Data Fasting glucose >/= 126 [...] Current interpretive data was last revised 2022. Testing performed by: [facility], [address], [place] [address] Calcium 9.2 8.5 - 10.3 mg/dL [facility] Comment:Testing performed by : [facility], [address], [place] [address] Bilirubin, total 0.2 0.1 - 1.2 mg/dL [facility] Comment:Testing performed by : [facility], [address], [place] [address] Protein, pl 7.1 6.5 - 8.5 g/dL [facility] Comment:Testing performed by : [facility], [address], [place] [address] Albumin 4.5 3.5 - 5.0 g/dL [facility] Comment:Testing performed by : [facility], [address], [place] [address] Alk phos 71 40 - 130 Units/L [facility] Comment:Testing performed by : [facility], [address], [place] [address] ALT 14 7 - 45 Units/L [facility] Comment:Testing performed by : [facility], [address] [place] [address] AST 16 10 - 45 Units/L [facility] Comment:Testing performed by : [facility], [address] [place] [address] Blood 01/24/2025 2:49 PM CDT 01/24/2025 2:57 PM CDT us Savita Ann NP LAB BLOOD ORDERABLES Fi nal Result [facility] [address] Department [place] [address] * Screening Mammogram Bilateral W Jason (08/20/2024 3:03 PM CDT) Anatomical Region Laterality Modality Breast Bilateral Mammography Impressions 08/20/2024 3:12 PM CDT BI-RADS ATLAS category (overall): 1 - Negative There is no mammographic evidence of malignancy. A 1 year screening mammogram is recommended. The patient has been or will be contacted. We recommend annual screening mammography for women at average risk of breast cancer beginning at age 40, based on guidelines of the [employer] (ACR Practice Parameter for the Performance of Screening and Diagnostic Mammography) and [employer]. For women with and elevated risk of breast cancer, please refer to the ACR Practice Parameter for specific screening recommendations. The patient will be entered into a reminder system with a target due date of 1 year for her next screening exam. Narrative 08/20/2024 3:12 PM CDT Screening Mammogram Bilateral W Jason: 08/20/24 The study was acquired using full field digital technology and interpreted from soft copy. 2D digital mammographic views, as well as 3D digital tomosynthesis were performed in the CC and MLO projections. This study was resulted using Computer-Aided Detection (CAD). CLINICAL: Encounter for screening mammogram for malignant neoplasm of breast. No relevant medical history has been documented for this patient. History of breast cancer in Sister. No comparisons were made when reading this study. BREAST TISSUE: The breasts are almost entirely fatty. FINDINGS: No suspicious masses, suspicious calcifications, or other suspicious findings are seen within either breast. There has been no suspicious change. us Vasu Pickens MD IMG MAMMO PROCEDURES Fin al Result * Colonoscopy (04/05/2024 7:03 AM CDT) Anatomical Region Laterality Modality Other Narrative Procedure Note Kanu Schwarz, DO - 04/05/2024 7:03 AM CDT [facility] Patient Name: Rupa Quinn Procedure Date: 04/05/2024 7:03 AM Date of : 1955 Admit Type: Outpatient Age: 69 Gender: Female Attending MD: Kanu Schwarz D.O. Room: [facility] ENDOSCOPY ROOM 2 Note Status: Finalized Patient [...] scope was passed under direct vision. TheColonoscope [id number] was introduced through the anus and advanced [...] normal. Electronically signed by Kanu Schwarz M.D. Juan Francisco Teran.Kay. 04/05/2024 9:13:20 AM Number of Addenda: 0 Note Initiated On: 04/05/2024 7:03 AM Procedure Code(s): --- Professional --- 26575, Colonoscopy, flexible; with removal of tumor(s), polyp(s), or other lesion(s) by snare technique [id number], 59, Colonoscopy, flexible; with biopsy, single or multiple --- Technical --- 28096, Colonoscopy, flexible; with removal of tumor(s), polyp(s), or other lesion(s) by snare technique [id number], 59, Colonoscopy, flexible; with biopsy, single or [...] perforation orabscess without bleeding CPT copyright 2020 [employer]. All rights reserved. The codes documented in this report are preliminary and upon angiography technologist reviewmay be revised to meet current compliance requirements. Recognized by the [employer] for promoting quality in endoscopy us Kanu Schwarz DO ENDOSCOPY PROCEDURES Final Res ult * HEPATITIS C AB W/REFL TO HCV RNA, QN, PCR (REFL) (03/09/2017 9:25 AM CDT) Hep C Ab NON-REACTI VE NON-REACTI VE [facility] [place] SIGNAL TO CUT-OFF 0.02 <1.00 [facility] [place] Blood specimen (specimen) 03/09/2017 9:25 AM CDT 03/10/2017 4:19 AM CDT Narrative Resulting Agency Comment Performing Organization Information: Site ID: [facility] Name: [facility] Address: [address] [address] Director: Osei Fleming D.O., MPH us Vasu Pickens MD LAB BLOOD ORDERABLES Fin al Result [facility] * DEXA SCAN (06/23/2015) DEXA Scan Normal us Historical Provider MD HEALTH MAINTENANCE Final Result from Last 3 Months or Most Recently Relevant to Health Maintenance Insurance [employer] MEDICARE [facility] MEDICARE Advance Directives For more information, please contact: [phone] * Full Code (Latest Code Status on [...] 7:12 PM 09/10/2022 7:58 PM Care Teams Promotion Specialist Relationship Specialty Start Date End Date Vasu Pickens MD [address] [place] [address] PCP - General 09/10/16
--- OUTSIDE RECORDS SUMMARY | 2025-03-18 14:47 | XMS_ITS | Clinical Summary ---
Author Organization [facility] Address [address], [address] [address] Phone Care Team Providers Care Breakdown Mill Operator Name Role Phone Unavailable Primary Care Provider [...] 1:01 PM CDT Height 175.3 cm (5' 9) 12/13/2018 1:01 PM CDT Body Mass Index 37.8 12/13/2018 1:01 PM CDT Plan of Treatment Health Maintenance Due Date Last Done Comments Hepatitis C Virus (HCV) Screening 1955 TdaP Immunization 1955 Cologuard 1999 Colonoscopy 1999 Colorectal Cancer Screening 1999 Immunochemical Fecal Occult Blood 1999 Pneumococcal Immunization (50+ years) (1 of 1 - PCV) 01/12/2004 Zoster Immunization (1 of 2) 01/12/2004 Influenza Immunization (#1) 2025 03/29/2016, 1 07/12/2014 SARS-COV-2 Immunization ( season) 2025 11/02/2021, 03/09/2021, 08/14/2020, Additional history exists Respiratory Syncytial Virus (RSV) Immunization (Adult) (1 - 1-dose 75+ series) 2029 Hepatitis B Immunization Aged Out No longer eligible based on patient's age to complete this topic Human Papillomavirus (HPV) Immunization Aged Out No longer eligible based on patient's age to complete this topic Meningococcal Immunization (ACWY) Aged Out No longer eligible based on patient's age to complete this topic Rotavirus Immunization Aged Out No lo nger eligible based on patient's age to complete this topic
--- OUTSIDE RECORDS SUMMARY | 2025-03-18 14:47 | XMS_ITS | Encounter Summary ---
Author Organization [facility] Address [address] [place] [address] Phone Care Team Providers Care Coal Trimmer Name Role Phone Vasu Pickens MD Primary Care Provider + Encounter Details Date Type Department Care Team (Latest Contact Info) Description 01/25/2025 Results Follow-Up [facility] Medicine Rheumatology [address] [facility] Medical Office Building [address] [place] [address] Savita Ann, SHOP COORDINATOR [address] [place], [place] [id number] CBC with auto differential, Comprehensive metabolic panel, CRP (acute phase), Additional followed-up results: 3 Social History Tobacco Use Types Packs/Day Years [...] often do you attend chur ch or christian services? More than 4 times per year 09/09/2022 Do you belong to any clubs o r organizations such as mormonism groups, unions, fraternal or athletic groups, or [...] Master's degree (e.g., MA, MS, Santos, MEd, EQUIPMENT OPERATOR WAGE HAND, TIMA) 09/09/2022 Comments No Sex and Gender Information Value Date Recorded Sex Assigned at Not on file Legal Sex Female 5:12 PM TECHNICAL RECRUITER Gender Identity Not on file Sexual Orientation Not on file documented as of this encounter Plan of Treatment Not on file documented as of this encounter Visit Diagnoses Not on filedocumented in this encounter Care Teams Coal Trimmer Relationship Specialty Start Date End Date Vasu Pickens MD [address] [place] [address] PCP - General 09/10/16 documented as of this encounter
[2025-03-18 15:06] LABS: Albumin Level 4.3 g/dL (3.5-5.1); Estimated Glomerular Filt Rate > 60
--- NOTE | 2025-03-18 15:10 | ECG_ITS ---
Test Date: 2025-03-18 15:24:39 Measurements Intervals [place] Rate: 61 P: 24 WI: 154 QRS: 3 QRSD: 116 T: 5 QT: 455 QTc: 461 Interpretive Statements SINUS RHYTHM INCOMPLETE RIGHT BUNDLE BRANCH BLOCK BORDERLINE T WAVE ABNORMALITY- INFERIOR LEADS BASELINE ARTIFACT- I, II, III, AVR, AVL, AVF, V1, V4 BORDERLINE ECG No previous ECG available for comparison Electronically Signed On 03-18-2025 16:15:01 CDT by Nate Stone D.O.
== END 2025-03-18 13:56 | disposition home or self-care (01) ==
PROVIDERS: Visit Provider Orthopaedic Surgery
DX: M75.122 Complete rotator cuff tear or rupture of left shoulder, not specified as traumatic (principal); Z01.818 Encounter for other preprocedural examination; Z79.899 Other long term (current) drug therapy; E07.9 Disorder of thyroid, unspecified
CPT/HCPCS: 80307; 82040; 82565; 85014; 85018; 93005

== ENCOUNTER 2025-03-19 16:27 | Outpatient (CLI) | payer MEDICARE, SELFPAY ==
--- NOTE | ~2025-03-19 | XR_ITS ---
EXAMINATION: XR hand RT min 3V, 03/19/2025 16:40 CDT HISTORY: M65.341 - Trigger finger, right ring finger NON INJ PAIN COMPARISON: No comparisons available. Findings: No acute fracture or malalignment. Moderate degenerative changes of the first metacarpal carpal joint with moderate degenerative changes of the second and third metacarpal phalangeal joints. Soft tissues unremarkable. Impression: No acute fracture or malalignment. Reviewed, dictated and finalized at location P. Impression: No acute fracture or malalignment.
--- NOTE | ~2025-03-19 | CT_ITS ---
EXAMINATION: CT_[id number]_CT DATE: 03/19/2025 16:47 INDICATION: Left shoulder osteoarthritis. Preoperative planning. TECHNIQUE: Computed tomography (CT) of the left shoulder was performed without intravenous contrast. Automated exposure control and iterative reconstruction technique were employed. The dose-length product was 423.42 mGy-cm. COMPARISON: Left shoulder radiographs 06/11/2024 FINDINGS: There is a large sliding hiatal hernia. Alignment is normal. No fracture. There is severe osteoarthritis of acromioclavicular joint and moderate osteoarthritis of glenohumeral joint. There is volume loss and moderate fatty atrophy of supraspinatus muscle belly. There is volume loss and mild fatty atrophy of teres minor muscle belly. IMPRESSION: 1. Polyarticular osteoarthritis. Reviewed, dictated and finalized at location E.
--- OUTSIDE RECORDS SUMMARY | 2025-03-19 16:47 | XMS_ITS | Encounter Summary ---
Author Organization [facility] Address [address] [place] [address] Phone Care Team Providers Care Torch Operator Name Role Phone Vasu Pickens MD Primary Care Provider + Encounter Details Date Type Department Care Team (Latest Contact Info) Description 01/25/2025 Results Follow-Up [facility] Medicine Rheumatology [address] [facility] Medical Office Building [address] [place] [address] Savita Ann, FLIGHT DYNAMICIST [address] [place], [place] [phone] CBC with auto differential, Comprehensive metabolic panel, [...] often do you attend chur ch or congregational services? More than 4 times per year 09/09/2022 Do you belong to any clubs o r organizations such as latter day groups, unions, fraternal or athletic groups, or [...] Master's degree (e.g., MA, MS, Santos, MEd, AUTO CLOCKS REPAIRER, TIMA) 09/09/2022 Comments No Sex and Gender Information Value Date Recorded Sex Assigned at Not on file Legal Sex Female 5:12 PM CARDIAC CATH LAB MANAGER Gender Identity Not on file Sexual Orientation Not on file documented as of this encounter Plan of Treatment Not on file documented as of this encounter Visit Diagnoses Not on filedocumented in this encounter Care Teams Torch Operator Relationship Specialty Start Date End Date Vasu Pickens MD [address] [place] [address] PCP - General 09/10/16 documented as of this encounter
--- OUTSIDE RECORDS SUMMARY | 2025-03-19 16:47 | XMS_ITS | Clinical Summary ---
Author Organization [facility] Address [address] [place] [address] Care Team Providers Care Store Leader Name Role Phone Vasu Pickens MD Primary [...] (05/07/2020): Added automatically from request for surgery [id number] Closed nondisplaced fracture of second metatarsal bone [...] - 02/27/2025 11:59 PM CDT Hospital Encounter [facility] [address] [place] [address] Neoplasm of uncertain behavior of skin Discharge Disposition: Discharge to home or self care 02/25/2025 Telephone [facility] [address] [place] [address] Martha Mancilla RN 01/25/2025 Results Follow-Up [facility] Medicine Rheumatology [address] [facility] Medical Office [address] [place] [address] Savita Ann, ANA PAULA CBC with auto differential, Comprehensive metabolic panel, CRP (acute phase), Additional followed-up results: 3 01/24/2025 2:45 PM CDT Lab [facility] [address] [place] [address] Subluxation 01/24/2025 2:00 PM CDT Office Visit [facility] Rheumatology [address] [facility] [address] [place] [address] Savita Ann, ANA PAULA Rheumatoid arthritis of [...] often do you attend chur ch or latter day services? More than 4 times per year 09/09/2022 Do you belong to any clubs o r organizations such as taoist groups, unions, fraternal or athletic groups, or [...] Master's degree (e.g., MA, MS, Santos, MEd, WEAVER NARROW [employer]ABRICS, TIMA) 09/09/2022 Comments No Sex and Gender Information Value Date Recorded Sex Assigned at Not on file Legal Sex Female 5:12 PM MANAGER CORE Gender Identity Not on file Sexual Orientation [...] history exists Medical Devices Implanted Type Area Polisher Aluminum Device Identifier Shelf Expiration Date Model / [...] Bar Roldan M.D. KT: CLAUDIA Report ID: [id number] Reading Location: [id number] Procedure Note Bar Roldan MD - 03/01/2025 [...] Bar Roldan M.D. KT: KT Report ID: [id number] Reading Location: [id number] us Oniel Chadwick EDUCATION ASSOCIATE IMG US PROCEDURES Fin al Result * [...] was last reviewed 2021. Testing performed by: [facility], [address] [place] [address] Blood 01/24/2025 2:49 PM CDT 01/24/2025 2:57 PM CDT Savita Ann EDUCATION ASSOCIATE LAB BLOOD ORDERABLES Fi nal Result [facility] [address] [place] [address] * Differential, auto (01/24/2025 2:49 PM CDT) Neutrophil abs 4.54 1.50 - 6.50 K/cumm Comment:Testing performed by : [facility], [facility] 2, [address] [place] [address] Imm gran abs 0.02 0.00 - 0.10 K/cumm [facility] Comment:Testing performed by : [facility] 2, [address] [place] [address] Lymphocyte abs 1.54 0.80 - 3.30 K/cumm [facility] Comment:Testing performed by : [facility] 2, [address] [place] [address] Monocyte abs 0.44 0.20 - 0.80 K/cumm [facility] Comment:Testing performed by : [facility] 2, [address] [place] [address] Eosinophil abs 0.17 0.00 - 0.50 K/cumm [facility] Comment:Testing performed by : [facility] 2, [address] [place] [address] Basophil abs 0.08 0.00 - 0.10 K/cumm [facility] Comment:Testing performed by : [facility] 2, [address] [place] [address] Neutrophil pct 66.8 % [facility] Comment: Interpretive Data Percent cell count reference ranges are not reported, since discordance with absolute values may lead to misinterpretation of CBC data. Current Interpretive Data was last revised on 2017. Testing performed by: [facility], [facility] 2, [address] [place] [address] Imm gran pct 0.3 % [facility] Comment: Interpretive Data Percent cell count reference ranges are not reported, since discordance with absolute values may lead to misinterpretation of CBC data. Current Interpretive Data was last revised on 2017. Testing performed by: [facility], [facility] 2, [address] [place] [address] Lymphocyte pct 22.7 % [facility] Comment: Interpretive Data Percent cell count reference ranges are not reported, since discordance with absolute values may lead to misinterpretation of CBC data. Current Interpretive Data was last revised on 2017. Testing performed by: [facility], [facility] 2, [address] [place] [address] Monocyte pct 6.5 % [facility] Comment: Interpretive Data Percent cell count reference ranges are not reported, since discordance with absolute values may lead to misinterpretation of CBC data. Current Interpretive Data was last revised on 2017. Testing performed by: [facility], [facility] 2, [address] [place] [address] Eosinophil pct 2.5 % [facility] Comment: Interpretive Data Percent cell count reference ranges are not reported, since discordance with absolute values may lead to misinterpretation of CBC data. Current Interpretive Data was last revised on 2017. Testing performed by: [facility], [facility] 2, [address] [place] [address] Basophil pct 1.2 % [facility] Comment: Interpretive Data Percent cell count reference ranges are not reported, since discordance with absolute values may lead to misinterpretation of CBC data. Current Interpretive Data was last revised on 2017. Testing performed by: [facility], [facility] 2, [address] [place] [address] Blood 01/24/2025 2:49 PM CDT 01/24/2025 2:50 PM CDT Savita Ann EDUCATION ASSOCIATE LAB BLOOD ORDERABLES Fi nal Result [facility] [address] [facility] Department [place] [address] * (ABNORMAL) CBC with auto differential (01/24/2025 2:49 PM CDT) Pathologist [facility] WBC 6.79 3.80 - 9.90 K/cumm Comment:Testing performed by : [place] [address], [place] [address] Hgb 11.9 11.9 - 15.5 g/dL [facility] Comment:Testing performed by : [place] [address] [place] [address] Hct 36.9 35.6 - 45.5 % [facility] Comment:Testing performed by : [place] [address], [address] [place] [address] Plt 275 150 - 400 K/cumm [facility] Comment:Testing performed by : [address] [place] [address] MPV 9.2 9.1 - 12.3 fL [facility] Comment:Testing performed by : [place] [address], [address] [place] [address] RBC 3.89(L) 3.90 - 5.20 M/cumm [facility] Comment:Testing performed by : [place] [address], [address] [place] [address] MCV 94.9 81.3 - 96.4 fL [facility] Comment:Testing performed by : [place] [address], [address] [place] [address] MCH 30.6 27.1 - 33.3 pg [facility] Comment:Testing performed by : [facility], [facility] 2, [address] [place] [address] MCHC 32.2(L) 32.3 - 35.7 g/dL [facility] Comment:Testing performed by : [facility], [facility] 2, [address] [place] [address] RDW CV 14.3 11.1 - 14.9 % [facility] Comment:Testing performed by : [facility], [facility] 2, [address] [place] [address] RDW SD 49.6(H) 35.7 - 48.1 fL [facility] Comment:Testing performed by : [facility], [facility] 2, [address] [place] [address] ANC Prelim 4.54 1.50 - 6.50 K/cumm [facility] T[facility] Comment: Interpretive Data The rapid ANC is a preliminary automated count and may vary from the final ANC (Neut Abs) reported in the WBC differential that follows. Current interpretive data was last revised 2024. Testing performed by: [facility], [facility] 2, [address] [place] [address] Blood 01/24/2025 2:49 PM CDT 01/24/2025 2:50 PM CDT Savita Ann EDUCATION ASSOCIATE LAB BLOOD ORDERABLES nal Result [facility] [address] Department [place] [address] * Erythrocyte sedimentation rate (01/24/2025 2:49 PM CDT) Erythrocyte sedimentation rate 27 1 - 30 mm/hr Comment:Testing performed by : [facility], [address] [place] [address] Blood 01/24/2025 2:49 PM CDT 01/24/2025 3:23 PM CDT us Savita Ann NP LAB BLOOD ORDERABLES Fi nal Result Performing Organization Address [facility] Co de Phone Number [facility] [address] [facility] [place] [address] * CRP (acute phase) (01/24/2025 2:49 PM CDT) CRP 4.1 <=10.0 mg/L Comment:Testing performed by : [facility], [address], [place] [address] Blood 01/24/2025 2:49 PM CDT 01/24/2025 2:57 PM CDT us Savita Ann NP LAB BLOOD ORDERABLES Fi nal Result Performing Organization Address [facility] de Phone Number [facility] [address] [facility] [place] [address] * Comprehensive metabolic panel (01/24/2025 2:49 PM CDT) Pathologist [facility] Sodium 139 135 - 145 mmol/L Comment:Testing performed by : [facility], [address], [place] [address] Potassium, pl 3.9 3.3 - 4.9 mmol/L [facility] Comment:Testing performed by : [facility], [address], [place] [address] Chloride 101 97 - 110 mmol/L [facility] Comment:Testing performed by : [facility], [address], [place] [address] CO2 27 22 - 32 mmol/L [facility] Comment:Testing performed by : [facility], [address], [place] [address] Anion gap 11 2 - 15 mmol/L [facility] Comment:Testing performed by : [facility], [address], [place] [address] BUN 14 6 - 25 mg/dL [facility] Comment:Testing performed by : [facility], [address], [place] [address] Creatinine 0.80 0.60 - 1.10 mg/dL [facility] Comment:Testing performed by : [facility], [address], [place] [address] Glucose 148 70 - 199 mg/dL CERNER [...] was last revised 2022. Testing performed by: [facility], [address], [place] [address] Calcium 9.2 8.5 - 10.3 mg/dL [facility] Comment:Testing performed by : [facility], [address], [place] [address] Bilirubin, total 0.2 0.1 - 1.2 mg/dL [facility] Comment:Testing performed by : [facility], [address], [place] [address] Protein, pl 7.1 6.5 - 8.5 g/dL [facility] Comment:Testing performed by : [facility], [address], [place] [address] Albumin 4.5 3.5 - 5.0 g/dL [facility] Comment:Testing performed by : [facility], [address], [place] [address] Alk phos 71 40 - 130 Units/L [facility] Comment:Testing performed by : [facility], [address], [place] [address] ALT 14 7 - 45 Units/L [facility] Comment:Testing performed by : [facility], [address] [place] [address] AST 16 10 - 45 Units/L [facility] Comment:Testing performed by : [facility], [address] [place] [address] Blood 01/24/2025 2:49 PM CDT 01/24/2025 2:57 PM CDT us Savita Ann NP LAB BLOOD ORDERABLES Fi nal Result [facility] [address] [place] [address] * Screening Mammogram Bilateral W Jason (08/20/2024 [...] age 39, based on guidelines of the [place] [employer] (ACR Practice Parameter for the Performance of Screening and Diagnostic Mammography) and [place] [employer]. For women [...] Schwarz, DO - 04/05/2024 7:03 AM CDT [facility] Patient Name: Rupa Quinn Procedure Date: 04/05/2024 7:03 AM Date of : 1955 Admit Type: Outpatient Age: 69 Gender: Female Attending MD: Kanu Schwarz D.O. Room: [facility] RO[facility] 2 Note Status: Finalized Patient [...] scope was passed under direct vision. TheColonoscope [id number] was introduced through the anus and advanced [...] 7:03 AM Procedure Code(s): --- Professional --- 94797, Colonoscopy, flexible; with removal of tumor(s), polyp(s), or other lesion(s) by snare technique 24922, 59, Colonoscopy, flexible; with biopsy, single or multiple --- Technical --- 09417, Colonoscopy, flexible; with removal of tumor(s), polyp(s), or other lesion(s) by snare technique 68422, 59, Colonoscopy, flexible; with biopsy, single or [...] perforation orabscess without bleeding CPT copyright 2020 [employer]. All rights reserved. The codes documented in this report are preliminary and upon case filler reviewmay be revised to meet current compliance requirements. Recognized by the [place] [employer] for promoting quality [...] Site ID: CORIE Name: Jatin Lyons-Chi Address: [address] [address] Director: Osei Fleming D.O., MPH us Vasu Pickens MD LAB BLOOD ORDERABLES Fin al Result [facility] - CORIE Calderon * DEXA SCAN (06/23/2015) DEXA Scan Normal us Historical Provider MD HEALTH MAINTENANCE Final Result from Last 3 Months or Most Recently Relevant to Health Maintenance Insurance [employer] MEDICARE [facility] Address: [facility] [id number] [place] [id number] [facility] MEDICARE Advance Directives For more information, please contact: [phone] * Full Code (Latest Code Status on [...] 7:12 PM 09/10/2022 7:58 PM Care Teams Store Leader Relationship Specialty Start Date End Date Vasu Pickens MD [address] [place] [address] PCP - General 09/10/16
--- OUTSIDE RECORDS SUMMARY | 2025-03-19 16:47 | XMS_ITS | Clinical Summary ---
Author Organization [facility] Address [address], [address] [address] Phone Care Team Providers Care Filter Screen Cleaner Name Role Phone Unavailable Primary Care Provider [...]
== END 2025-03-19 16:28 | disposition home or self-care (01) ==
PROVIDERS: PCP Internal Medicine; Visit Provider Orthopaedic Surgery
DX: M65.341 Trigger finger, right ring finger (principal); M75.122 Complete rotator cuff tear or rupture of left shoulder, not specified as traumatic
CPT/HCPCS: 73130; 73200